=== PATIENT | female | born 1980 | race Caucasian/White ===

== ENCOUNTER 2025-05-25 18:02 | Emergency (ER) | payer OTHER ==
[2025-05-25 18:12] VITALS: TEMP 98.4; BMI 31.6
[2025-05-25] MEDS ORDERED: FAMOTIDINE 20 MG TABLET ONE (18:43)
[2025-05-25] MEDS ORDERED: predniSONE 20 MG TABLET (UD) ONE (18:43)
[2025-05-25] MEDS: predniSONE 20 MG TABLET (UD) PO ONE (18:50)
[2025-05-25] MEDS: FAMOTIDINE 20 MG TABLET PO ONE (18:50)
[2025-05-25] MEDS ORDERED: EPINEPHrine 1:1000 P/F - 1 MG/ML AMP ONE (18:57)
[2025-05-25] MEDS: EPINEPHrine 1:1,000 0.3 MG/0.3 ML SYR IM ONE (19:04)
[2025-05-25 19:17] VITALS: RESP 16
[2025-05-25] MEDS ORDERED: ACETAMINOPHEN 325 MG TABLET (FP) ONE (20:03)
[2025-05-25] MEDS ORDERED: LIDOCAINE 5% TOPICAL PATCH ONE (20:04)
[2025-05-25] MEDS: ACETAMINOPHEN 325 MG TABLET (FP) PO ONE (20:04)
[2025-05-25] MEDS: LIDOCAINE 5% TOPICAL PATCH TP ONE (20:08)
[2025-05-25 20:12] VITALS: BP 119/54; PULSE 82
[2025-05-25] MEDS: KETOROLAC TROMETHAMINE 60 MG/2 ML VIAL IM ONE (20:23)
[2025-05-25] MEDS ORDERED: LIDOCAINE PATCH REMOVAL MC SCH (22:00)
== END 2025-05-25 21:16 | disposition home or self-care (01) ==
LOC: FER 18:02
PROC: 3E023GC Introduction of Other Therapeutic Substance into Muscle, Percutaneous Approach (ICD-10-PCS; principal; 2025-05-25)
DX: K13.0 Diseases of lips (principal); R07.89 Other chest pain; M79.89 Other specified soft tissue disorders; J39.2 Other diseases of pharynx; T63.441A Toxic effect of venom of bees, accidental (unintentional), initial encounter; X58.XXXA Exposure to other specified factors, initial encounter
CPT/HCPCS: 93005; 99284-25; J0169